=== PATIENT | female | born 1955 | race Caucasian/White ===

== ENCOUNTER 2018-08-02 06:23 | Day surgery (SDC) | payer OTHER ==
[2018-08-02] VITALS (9 sets, daily range): BP systolic 82–141; BP diastolic 44–81; PULSE 60–73; RESP 16–30; Ht 165.1 cm; Wt 113.7 kg
[~2018-08-02] VITALS: Ht 165.1 cm; Wt 113.7 kg
[~2018-08-02 06:23] MED LIST: ATEN100T PO; CALC600T PO; CHOL100062 PO; CLON-379 PO; FLUO40CA10 PO; LOSA100T15 PO; MELA3TAB17 PO; PROC10TA10 PO; QUET100T PO; [UNRECOGNIZED DRUG - CODE] PO
--- NOTE | 2018-08-02 06:30 | PREOPHP ---
DATE OF ADMISSION: 08/02/2018 HISTORY OF PRESENT ILLNESS: This 63-year-old patient is admitted for elective cataract surgery of th e right eye. The patient has had progressive deterioration of vision in that eye and previously unde rwent cataract surgery in the left eye 4 years ago with good visual result. SYSTEMIC HISTORY: Positive for hypertension, prediabetes mellitus, hypercholesterolemia. CURRENT MEDICATIONS: Include: 1. Atenolol. 2. Clonidine. 3. Fosamax. 4. Hydrochlorothiazide. 5. Simvastatin. 6. Seroquel. 7. Prozac. ALLERGIES: THERE ARE NO KNOWN ALLERGIES. PHYSICAL EXAMINATION: The visual acuity with best correction is 20/400 in the right eye and 20/40 in the left eye. Slit lamp examination reveals dense posterior subcapsular cataract in the right eye. The left eye has a posterior chamber intraocular lens and evidence of prior laser capsulotomy. Exam ination of the retina is within normal limits. DIAGNOSIS: Posterior subcapsular cataract, left eye. PLAN: Cataract extraction with lens implant, left eye. The risks and the alternatives to the surger y have been discussed with the patient as well as the hope for improvement in visual acuity leading t o greater ability to perform activities of daily living. The patient understands this and agrees to proceed with surgery. Dictated By: MILLI KNOWLES/JÚNIOR Conf#: [id number] DID#: [id number]
[2018-08-02] MEDS ORDERED: TROPICAMIDE 1% 15 ML OPH OPER SCH (07:00)
[2018-08-02] MEDS ORDERED: DICLOFENAC 0.1% 2.5 ML OPH OPER SCH (07:00)
[2018-08-02] MEDS ORDERED: SOD CHLORIDE 0.9% 1,000 ML IV SCH (07:00)
[2018-08-02] MEDS ORDERED: CYCLOPENTOLATE/PHENYLEPH 2 ML OPH OPER SCH (07:00)
[2018-08-02] MEDS ORDERED: MOXIFLOXACIN 0.5% 3 ML OPH OPER SCH (07:00)
--- NOTE | 2018-08-02 07:26 | PREAC ---
Date/Time of Note Date/Time of Note DATE: 08/02/18 TIME: 07:25 Anesthesia Eval and Record Evaluation Time Pre-Procedure Interview DATE: 08/02/18 TIME: 07:25 Age 63 Sex female NPO: 8 hrs Preoperative diagnosis LEFT eye cataract Planned procedure LEFT eye CEIOL implant Past Medical History Past Medical History: Includes Cardio: HTN, Dyslipidemia Pulm: Smoking Hx (3-8 cigs/day, last smoked yesterday), Other (preDM) Neuro: Other (chronic back pain) Musculoskeletal: Osteoarthritis GI: Morbid obesity (BMI 41.7) Psych: Depression, Anxiety Surgery & Anesthesia Issues No known issue Meds Anticoagulation: No Beta Jenn within 24 hr: Yes Reported Medications Losartan Potassium* (Losartan Potassium*) 50 Mg Tablet, 50 MG PO DAILY, TAB 08/02/18 Simvastatin* (Zocor*) 40 Mg Tablet, 40 MG PO QHS, #30 TAB 08/02/18 Atenolol* (Atenolol*) 100 Mg Tablet, 100 MG PO DAILY, TAB 11/20/14 Clonidine Hcl* (Clonidine Hcl*) 0.1 Mg Tab, 0.1 MG PO DAILY, TAB 11/20/14 Discontinued Reported Medications Melatonin (Melatonin) 3 Mg Tablet.sa, 3 MG PO HS, TAB.SA 11/20/14 Calcium Carbonate (Calcium) 600 Mg Tablet, 600 MG PO DAILY 11/20/14 Black Cohosh Root Extract (Black Cohosh) 160 Mg Capsule, 540 MG PO DAILY, CAP 11/20/14 Cholecalciferol* (Vitamin D3*) 1,000 Unit Tablet, 1000 UNIT PO DAILY, TAB 11/20/14 Quetiapine Fumarate* (Seroquel*) 100 Mg Tablet, 100 MG PO 5 TIMES DAILY, TAB 11/20/14 Fluoxetine Hcl* (Prozac*) 40 Mg Capsule, 40 MG PO DAILY, CAP 11/20/14 Prochlorperazine* (Prochlorperazine*) 10 Mg Tablet, 10 MG PO Q6H PRN for NAUSEA, TAB 11/20/14 Losartan Potassium* (Losartan Potassium*) 100 Mg Tablet, 100 MG PO DAILY, TAB 11/20/14 Current Medications Diclofenac Sodium (Voltaren 0.1%) 1 drop Q5 MIN X 3 OPER Last administered on 08/02/18at 07:12; Admin Dose 1 DROP; Start 08/02/18 at 07:00; Stop 08/02/18 at 16:00 Tropicamide (Mydriacyl 1%) 1 drop Q5 MIN X3 OPER Last administered on 08/02/18at 07:12; Admin Dose 1 DROP; Start 08/02/18 at 07:00; Stop 08/02/18 at 16:00 Moxifloxacin HCl (Vigamox) 1 drop Q5 MIN X 3 OPER Last administered on 08/02/18at 07:13; Admin Dose 1 DROP; Start 08/02/18 at 07:00; Stop 08/02/18 at 16:00 Cyclopentolate/ Phenylephrine (Cyclomydril Oph 2 ml) 1 drop Q5 MIN X 3 OPER Last administered on 08/02/18at 07:12; Admin Dose 1 DROP; Start 08/02/18 at 07:00; Stop 08/02/18 at 16:00 Sodium Chloride 1,000 ml @ 25 mls/hr Q24H IV ; Start 08/02/18 at 07:00; Stop 08/02/18 at 16:00 Meds reviewed: Yes Allergies Coded Allergies: No Known Allergy (Unverified , 08/02/18) Allergies Reviewed: Yes Labs/Studies Labs Reviewed: Reviewed by anesthesiologist test: N/A Studies: ECG, CXR Pre-procedure Exam Airway: Adequate mouth opening, Adequate thyromental dist Mallampati: Mallampati II Teeth: Normal Lung: Normal (partials upper pt refused to remove) Heart: Normal ASA Physical Status ASA physical status: 3 Emergency: None Planned Pain Management Parenteral pain med, Local by surgeon Pre-operative Attestations Prior to commencing anesthesia and surgery, the patient was re-evaluated, there was verification of: *The patient's identity *The results of appropriate recent lab work and preoperative vital signs *The above evaluation not changing prior to induction *Anesthetic plan, risk benefits, alternative and complications discussed with patient/family; questions answered; patient/family understands, accepts and wishes to proceed. ISAIAH JACINTO Aug 02, 2018 07:26
[2018-08-02] MEDS ORDERED: LABETALOL HCL 20MG INJ IV PRN (07:30)
[2018-08-02] MEDS ORDERED: ONDANSETRON 4 MG INJ IV PRN (07:30)
[2018-08-02] MEDS ORDERED: hydrALAzine 20 MG INJ IV PRN (07:30)
[2018-08-02] MEDS ORDERED: OXYCODONE/ACETAMINOPHEN (5/325) TAB PO PRN ×2 (07:30)
[2018-08-02] MEDS ORDERED: FENTAnyl 50 MCG/ML VIAL IV PRN ×3 (07:30)
[2018-08-02] MEDS ORDERED: PROPOFOL 20 ML ONE (08:03)
[2018-08-02] MEDS ORDERED: FENTAnyl 50 MCG/ML VIAL ONE ×2 (08:03→08:50)
[2018-08-02] MEDS ORDERED: LOSA50TA14 PO (08:04)
[2018-08-02] MEDS ORDERED: SIMV40TA2 PO (08:04)
[2018-08-02] MEDS ORDERED: CEFAZOLIN 1 GM INJ ONE (08:18)
[2018-08-02] MEDS ORDERED: DEXAMETHASONE 4 MG/ML 1 ML INJ ONE (08:18)
[2018-08-02] MEDS ORDERED: CARBACHOL 0.01% 1.5 ML OPH INJ ONE (08:18)
[2018-08-02] MEDS ORDERED: LIDOCAINE 4% (MPF) 5 ML INJ ONE (08:18)
[2018-08-02] MEDS ORDERED: TETRACAINE 0.5% 4 ML OPH ONE (08:18)
[2018-08-02] MEDS ORDERED: GENTAMICIN 80 MG INJ ONE (08:18)
[2018-08-02] MEDS ORDERED: NA HYALURONATE/CHONDROITIN 0.5 ML SYG ONE (08:18)
[2018-08-02] MEDS ORDERED: MIDAZOLAM 1 MG/ML 2 ML INJ ONE (08:52)
--- NOTE | 2018-08-02 09:36 | OPR ---
DATE OF OPERATION: 08/02/2018 PREOPERATIVE DIAGNOSIS: Posterior subcapsular cataract. POSTOPERATIVE DIAGNOSIS: Posterior subcapsular cataract. OPERATION PERFORMED: Cataract extraction with lens implant, right eye. SURGEON: Milli Willis M.D. ANESTHESIOLOGIST: Morales Pineda CRNA ANESTHESIA: Local standby. PROCEDURE: The patient was brought to the operating room and placed on the table with an IV in place and the patient attached to an slice plug cutter operator helper. Oxygen was given via face mask. After some intravenous sedation was administered, local anesthesia was given using Xylocaine 2% with epinephrine, mixed with Marcaine 0.5%. This was given in a lid block and retrobulbar injection. The patient was then prepped and draped in the usual sterile manner. A wire lid speculum was inserted between the lids of the right eye. A Superblade was used to enter t he anterior chamber at the corneoscleral limbus at the 10:30 o'clock position. A separate incision w as made using a 3.0-mm keratome which entered the corneoscleral junction at the 12 o'clock position. Through this 3-mm opening, an irrigating cystotome was introduced into the anterior chamber. The ch yumiko was filled with Viscoat and an anterior capsulotomy was performed. Balanced salt solution was then used for hydrodissection of the lens. A phacoemulsification handpiece was then brought into the field and introduced into the anterior chamber. The lens nucleus was emulsified using a deep groove and cracking the nucleus into quadrants. Following this, each quadrant was aspirated and emulsified at the pupillary margin. After this was completed, the irrigation/aspiration handpiece was brought to the field, introduced in to the posterior chamber, and the lens cortical material was removed. When this was completed, addit ional Viscoat was injected into the anterior and posterior chambers. The 3-mm opening had its internal lips enlarged, and then the posterior chamber intraocular lens francine uring 17.5 diopters ([employer] model LI61AO) was then injected into the posterior c hamber using the lens injector system. After the leading haptic was introduced into the capsular bag and the lens optic was present in the center of the eye, the injector was removed and the trailing h aptic was grasped with non-toothed forceps and introduced into the capsular fold superiorly. A [place] ey hook was then used to rotate the intraocular lens so that the lips were oriented in the horizontal meridian. One 10-0 nylon suture was placed across the wound. Prior to tying, the irrigation/aspiration handpiece was reintroduced into the anterior chamber to rem ove the Viscoat. Miochol was instilled to constrict the pupil, and then the 10-0 nylon suture was ti ed. The ends were cut short and then the knot was buried. Then, 0.5 mL of dexamethasone and 0.5 mL of Ancef were injected into the sub-Tenon space in the infer ior fornix. Ciloxan drops were then placed on the surface of the eye. The speculum was removed and a patch was applied. The patient then left the operating room in satisfactory condition. Dictated By: MILLI KNOWLES/JÚNIOR Conf#: [id number] DID#: [id number] CC: MILLI WILLIS MD;*EndCC*
--- NOTE | 2018-08-02 09:36 | SIPON ---
Date/Time of Note Date/Time of Note DATE: 08/02/18 TIME: 09:35 Operative Report Preoperative Diagnosis posterior subcapsular cataract od Postoperative Diagnosis same Operation/Procedure Performed cataract extraction with lens implant od Surgeon milli willis plumber's assistant none Anesthesia: MAC Estimated blood loss: none Transfusion Required none Specimen none Grafts/Implants posterior chamber lens implant Complications none MILLI WILLIS MD Aug 02, 2018 09:36
--- NOTE | 2018-08-02 10:11 | PAC ---
Date/Time of Note Date/Time of Note DATE: 08/02/18 TIME: 10:10 Post-Anesthesia Notes Post-Anesthesia Note Last documented vital signs PACU BP 138/66 HR 73 SPo2 94% RR 16 Temp 97.7 Vital Signs Date Temp Pulse Resp B/P (MAP) Pulse Ox O2 O2 Flow FiO2 Time Delivery Rate 08/02/18 97.4 70 16 141/81 95 Room Air 07:23 (101) Activity: WNL Respiratory function: WNL Cardiovascular function: WNL Mental status: Baseline Pain reasonably controlled: Yes Hydration appropriate: Yes Nausea/Vomiting absent: Yes ISAIAH JACINTO Aug 02, 2018 10:11
== END 2018-08-02 10:33 | disposition home or self-care (01) ==
LOC: SDS 06:23
PROVIDERS: ATTEND Ophthalmology
DX: H25.041 Posterior subcapsular polar age-related cataract, right eye (principal); I10 Essential (primary) hypertension; Z87.891 Personal history of nicotine dependence; R73.03 Prediabetes
CPT/HCPCS: 66984; J0690; J1100; J1580; J2250; J3010; V2632